=== PATIENT | female | born 1950 | race Asian ===

== ENCOUNTER 2018-06-21 10:04 | Day surgery (SDC) | payer BC ==
[2018-06-21] MEDS ORDERED: FENTAnyl 50 MCG/ML VIAL (12:43)
[2018-06-21] MEDS ORDERED: MIDAZOLAM 1 MG/ML 2 ML INJ ×2 (12:43)
[2018-06-21] MEDS ORDERED: ATROPINE 1 MG INJ (12:44)
== END 2018-06-21 13:00 | disposition home or self-care (01) ==
LOC: GIL 10:04
DX: Z12.11 Encounter for screening for malignant neoplasm of colon (principal); K57.30 Diverticulosis of large intestine without perforation or abscess without bleeding; K64.8 Other hemorrhoids; I10 Essential (primary) hypertension; E78.5 Hyperlipidemia, unspecified
CPT/HCPCS: 45378